=== PATIENT | male | born 1960 | race Caucasian/White ===

== ENCOUNTER 2018-06-22 12:36 | Emergency (ER) | payer OTHER ==
[~2018-06-22] VITALS: Ht 170.2 cm; Wt 87.4 kg
[2018-06-22 12:37] VITALS: Ht 170.2 cm; Wt 87.4 kg
--- NOTE | 2018-06-22 13:03 | EMERGENCY ROOM VISIT NOTE ---
History Report prepared by Vijayibmaeve: Oma Suh Under the Supervision of: Dr. Jaziel Klein M.D. First contact with patient: 12:47 Chief Complaint: WEAKNESS Stated Complaint: WEAK AND SHAKES History of Present Illness The patient is a 57 year old male who presents to the Emergency Room with complaints of worsening weakness. He reports he experienced pneumonia 18 years ago, and about 1 month ago, he started experiencing "the shakes real bad". He laid in bed for a day, and the next day felt better. Last night, he experienced the shakes, chills, and a cough again. Around 0200, he woke up feeling very nauseous and vomited several times. He states his vomit appeared "black" and he also experienced "black" diarrhea and a headache. He tried to go to work today, but was unable to make it through the day, so he went home and called his doctor who referred him to the ED. He states the shakes have subsided, but he does still have a headache that he rates as a 5/10 in severity. He is able to touch his chin to his chest and move his head from side to side. The patient denies any recent exposures to ticks or prolonged time spent outside. He has experienced no recent rashes. He denies any recent questionable food sources and states he "only ate watermelon" yesterday. He believes his last colonoscopy was within the past 10 years but cannot remember who scoped him. The patient denies any recent abdominal pain. He has never undergone abdominal surgery and still has his gallbladder and appendix. 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 A total of 10 systems reviewed and were otherwise negative. Past Medical & Surgical Medical Problems: (1) History of pneumonia Social History Smoking Status: Never Smoker Alcohol Use: occasionally Drug Use: none Marital Status: Housing Status: lives with family Occupation Status: employed Current/Historical Medications Scheduled Ondasetron Odt (Zofran Odt), 4 MG SL Q6H Pantoprazole Sodium (Protonix), 1 TAB PO DAILY Allergies Coded Allergies: No Known Allergies (Unverified , 06/22/18) Physical Exam Vital Signs Date Time Temp Pulse Resp B/P (MAP) Pulse Ox O2 Delivery O2 Flow Rate FiO2 06/22/18 16:01 101 16 114/69 95 06/22/18 15:00 22 118/77 97 06/22/18 14:55 101 18 06/22/18 14:30 134/83 06/22/18 14:25 92 21 96 06/22/18 14:01 118/72 06/22/18 13:55 92 17 99 06/22/18 13:48 36.9 77 12 115/80 96 Room Air 06/22/18 13:43 81 06/22/18 13:42 96 Room Air 06/22/18 12:37 37.0 104 20 118/75 97 Room Air Physical Exam GENERAL: Awake, alert, well-appearing, in no acute distress HENT: Normocephalic, atraumatic. Oropharynx unremarkable. EYES: Normal conjunctiva. Sclera non-icteric. NECK: Supple. No nuchal rigidity. FROM. No JVD. No evidence of meningitis or encephalitis on exam. RESPIRATORY: Clear to auscultation. CARDIAC: Regular rate, normal rhythm. Extremities warm and well perfused. Pulses equal. ABDOMEN: Soft, non-distended. No tenderness to palpation. No rebound or guarding. No masses. RECTAL: Brown stool, heme positive. MUSCULOSKELETAL: Chest examination reveals no tenderness. The back is symmetrical on inspection without obvious abnormality. There is no CVA tenderness to palpation. No joint edema. LOWER EXTREMITIES: Calves are equal size bilaterally and non-tender. No edema. No discoloration. NEURO: Normal sensorium. No sensory or motor deficits noted. SKIN: No rash or jaundice noted. Medical Decision & Procedures ER Provider Diagnostic Interpretation: Radiology results as stated below per my review and radiologist interpretation: CHEST ONE VIEW PORTABLE CLINICAL HISTORY: Cough. Weakness. COMPARISON STUDY: No previous studies for comparison. FINDINGS: Lung volumes are normal. No pneumothorax or pleural effusion is noted. No evidence for pulmonary edema. Cardiomediastinal silhouette is unremarkable. There is no consolidation. IMPRESSION: No acute cardiopulmonary findings. Electronically signed by: Julio Escobar M.D. 06/22/2018 1:41 PM Laboratory Results 06/22/18 13:14 Red Blood Count 5.22, Mean Corpuscular Volume 84.9, Mean Corpuscular Hemoglobin 29.1, Mean Corpuscular Hemoglobin Concent 34.3, Mean Platelet Volume 9.4, Neutrophils (%) (Auto) 72.1, Lymphocytes (%) (Auto) 19.9, Monocytes (%) (Auto) 6.8, Eosinophils (%) (Auto) 0.8, Basophils (%) (Auto) 0.2, Neutrophils # (Auto) 3.59, Lymphocytes # (Auto) 0.99, Monocytes # (Auto) 0.34, Eosinophils # (Auto) 0.04, Basophils # (Auto) 0.01 06/22/18 13:14 Test 06/22/18 13:14 06/22/18 13:24 White Blood Count 4.98 K/uL (4.8-10.8) Red Blood Count 5.22 M/uL (4.7-6.1) Hemoglobin 15.2 g/dL (14.0-18.0) Hematocrit 44.3 % (42-52) Mean Corpuscular Volume 84.9 fL (80-100) Mean Corpuscular Hemoglobin 29.1 pg (25-34) Mean Corpuscular Hemoglobin Concent 34.3 g/dl (32-36) Platelet Count 174 K/uL (130-400) Mean Platelet Volume 9.4 fL (7.4-10.4) Neutrophils (%) (Auto) 72.1 % Lymphocytes (%) (Auto) 19.9 % Monocytes (%) (Auto) 6.8 % Eosinophils (%) (Auto) 0.8 % Basophils (%) (Auto) 0.2 % Neutrophils # (Auto) 3.59 K/uL (1.4-6.5) Lymphocytes # (Auto) 0.99 K/uL (1.2-3.4) Monocytes # (Auto) 0.34 K/uL (0.11-0.59) Eosinophils # (Auto) 0.04 K/uL (0-0.5) Basophils # (Auto) 0.01 K/uL (0-0.2) RDW Standard Deviation 41.6 fL (36.4-46.3) RDW Coefficient of Variation 13.4 % (11.5-14.5) Immature Granulocyte % (Auto) 0.2 % Immature Granulocyte # (Auto) 0.01 K/uL (0.00-0.02) Prothrombin Time 11.0 SECONDS (9.0-12.0) Prothromb Time International Ratio 1.0 (0.9-1.1) Activated Partial Thromboplast Time 27.1 SECONDS (21.0-31.0) Partial Thromboplastin Ratio 1.0 Est Creatinine Clear Calc Drug Dose 86.7 ml/min Estimated GFR () 98.1 Estimated GFR (Non- 84.6 BUN/Creatinine Ratio 20.8 (10-20) Calcium Level 8.6 mg/dl (8.5-10.1) Total Bilirubin 1.3 mg/dl (0.2-1) Direct Bilirubin 0.3 mg/dl (0-0.2) Aspartate Amino Transf (AST/SGOT) 20 U/L (15-37) Alanine Aminotransferase (ALT/SGPT) 24 U/L (12-78) Alkaline Phosphatase 51 U/L (45-117) Total Protein 6.7 gm/dl (6.4-8.2) Albumin 3.6 gm/dl (3.4-5.0) Lipase 103 U/L (73-393) Bedside Hemoglobin 15.0 g/dl (14.0-18.0) Bedside Hematocrit 44 % (42-52) Bedside Sodium 140 mEq/L (135-144) Bedside Potassium 3.6 mEq/L (3.3-5.0) Bedside Chloride 100 mEq/L (101-112) Bedside Total CO2 26 mEq/l (24-31) Anion Gap 18.0 mmol/L (16-25) Bedside Blood Urea Nitrogen 19 mg/dl (7-18) Bedside Creatinine 1.0 mg/dl (0.6-1.3) Bedside Glucose (other) 102 mg/dl (70-99) Bedside Ionized Calcium (Rivka) 1.15 mmol/l (1.12-1.32) Labs reviewed by ED physician. Medications Administered Medications (Trade) Dose Ordered Sig/Jaswinder Route Start Time Stop Time Status Last Admin Dose Admin Sodium Chloride 1,000 ml @ 999 mls/hr Q1H1M STAT IV 06/22/18 13:10 06/22/18 14:10 DC 06/22/18 13:44 999 MLS/HR Ondansetron HCl (Zofran Inj) 4 mg NOW STAT IV 06/22/18 13:10 06/22/18 13:12 DC 06/22/18 13:45 4 MG Albuterol Sulfate (Ventolin 0.083% 2.5MG/3ML Neb) 2.5 mg NOW STAT INH 06/22/18 13:11 06/22/18 13:13 DC 06/22/18 13:45 2.5 MG Pantoprazole Sodium (Protonix Tab) 40 mg NOW STAT PO 06/22/18 13:58 06/22/18 13:59 DC 06/22/18 14:08 40 MG Acetaminophen (Tylenol Tab) 1,000 mg NOW STAT PO 06/22/18 14:27 06/22/18 14:28 DC 06/22/18 15:04 1,000 MG Diphenhydramine HCl (Benadryl Inj) 50 mg NOW STAT IV 06/22/18 14:27 06/22/18 14:28 DC 06/22/18 15:03 50 MG Prochlorperazine Edisylate 10 mg/ Syringe 10 ml @ 5 mls/min TODAY@1427 IV 06/22/18 14:27 06/22/18 14:44 DC 06/22/18 15:04 5 MLS/MIN ECG Per My Interpretation Indication: weakness Rate (beats per minute): 81 Rhythm: normal sinus Findings: other (no ST elevation, no ST depression) ED Course 1254: Past medical records reviewed. The patient was evaluated in room B7. A complete history and physical examination was performed. 1331: I discussed the patients case with SHAGUFTA Levin, [facility]. She reviewed the patients history and recommends discharge home and outpatient follow up if he continues to be stable here in the ED. Medical Decision Differential diagnosis: Etiologies such as metabolic, infection, hypo/hyperglycemia, electrolyte abnormalities, cardiac sources, intracerebral event, toxicologic, neurologic, as well as others were entertained. This is a 57-year-old male who presents emergency department complaining of vomiting black material this morning along with black diarrhea. He is heme positive on examination however the patient is not tachycardic and is normotensive. In addition his hemoglobin was found to be normal. His vomiting was controlled in the emergency department and the patient was able to tolerate p.o. Protonix. In reviewing the patient's risk factors he does not drink alcohol has very little caffeine. I strongly cautioned him not to take anymore ibuprofen. I did discuss his case with the on-call manager business intelligence and we both felt that the patient can be safely discharged home for follow-up with gastroenterology however I stressed the need to return to the emergency department if the patient became weak or began vomiting large amounts of blood. In the emergency department the patient was able to tolerate p.o. Protonix and I feel can be safely discharged home. He was also given normal saline bolus and Zofran. He will be continued on Protonix at home pending follow-up with gastroenterology. Patient was in agreement with the treatment plan. Medication Reconcilliation Current Medication List: was personally reviewed by me Blood Pressure Screening Patient's blood pressure: Normal blood pressure Blood pressure disposition: Did not require urgent referral Consults Time Called: 1329 Consulting Physician: SHAGUFTA Levin [facility] Returned Call: 1331 I discussed the patients case with SHAGUFTA Levin [facility]. She reviewed the patients history and recommends discharge home and outpatient follow up if he continues to be stable here in the ED. Impression Primary Impression: Gastritis Scribe Attestation The scribe's documentation has been prepared under my direction and personally reviewed by me in its entirety. I confirm that the note above accurately reflects all work, treatment, procedures, and medical decision making performed by me. Departure Information Dispostion Home / Self-Care Prescriptions Ondasetron Odt (ZOFRAN ODT) 4 Mg Tab 4 MG SL Q6H for Nausea, #6 TAB Prov: Jaziel Klein MD 06/22/18 Pantoprazole Sodium (PROTONIX) 40 Mg Tab 1 TAB PO DAILY for 30 Days, #30 TAB Prov: Jaziel Klein MD 06/22/18 Referrals Jaziel Brian M.D. (PCP) Patient Instructions ED Bleed UGI Stable, ED Gastritis, Gastritis Tx, My [facility] Additional Instructions Need follow up with Dr Luna's office Return for uncontrolled vomiting, severe diarrhea, Increasing weakness Start taking Probiotics (pills or yogurt) Avoid alcohol, caffeine, aspirin and NSAIDs such as Ibuprofen Take 1000 mg Tylenol as needed You have been examined and treated today on an emergency basis only. This is not a substitute for, or an effort to provide, complete comprehensive medical care. It is impossible to recognize and treat all injuries or illnesses in a single emergency department visit. It is therefore important that you follow up closely with your PCP. Call as soon as possible for an appointment. Thank you for your time and consideration. I look forward to speaking with you again soon. Please don't hesitate to call us if you have any questions. Problem Qualifiers Primary Impression: Gastritis Gastritis type: unspecified gastritis Chronicity: unspecified Gastritis bleeding: presence of bleeding unspecified Qualified Codes: K29.70 - Gastritis, unspecified, without bleeding
[2018-06-22] MEDS ORDERED: ONDANSETRON INJ 2 MG/ML 2 ML VIAL IV STA (13:10)
[2018-06-22] MEDS ORDERED: SODIUM CHLORIDE 0.9% 1000ML 1,000 ML IV STA (13:10)
[2018-06-22] MEDS ORDERED: ALBUTEROL 0.083% NEBU SOLN 3 ML VIAL INH STA (13:11)
[2018-06-22 13:26] LABS: BASO % 0.2 %; BASO ABS # 0.01 K/uL (0-0.2); EOS % 0.8 %; EOS ABS # 0.04 K/uL (0-0.5); HEMATOCRIT 44.3 % (42-52); HEMOGLOBIN 15.2 g/dL (14.0-18.0); IG# 0.01 K/uL (0.00-0.02); LYMPH % 19.9 %; LYMPH ABS # 0.99 K/uL (1.2-3.4); MEAN CELL VOLUME 84.9 fL (80-100); MEAN CORPUSCULAR HEMOGLOBIN 29.1 pg (25-34); MEAN CORPUSCULAR HGB CONC 34.3 g/dl (32-36); MEAN PLATELET VOLUME 9.4 fL (7.4-10.4); MONO % 6.8 %; MONO ABS # 0.34 K/uL (0.11-0.59); NEUT % 72.1 %; NEUT ABS # 3.59 K/uL (1.4-6.5); PLATELET COUNT 174 K/uL (130-400); RED CELL DISTRIBUTION WIDTH CV 13.4 % (11.5-14.5); RED CELL DISTRIBUTION WIDTH SD 41.6 fL (36.4-46.3); WHITE BLOOD COUNT 4.98 K/uL (4.8-10.8)
[2018-06-22 13:37] LABS: ISTAT IONIZED CALCIUM 1.15 mmol/l (1.12-1.32); ISTAT POTASSIUM 3.6 mEq/L (3.3-5.0)
[2018-06-22 13:40] LABS: PTT PATIENT 27.1 SECONDS (21.0-31.0)
[2018-06-22 13:42] VITALS: O2SAT 96
--- NOTE | 2018-06-22 13:42 | DIAGNOSTIC IMAGING REPORT ---
CHEST ONE VIEW PORTABLE CLINICAL HISTORY: Cough. Weakness. COMPARISON STUDY: No previous studies for comparison. FINDINGS: Lung volumes are normal. No pneumothorax or pleural effusion is noted. No evidence for pulmonary edema. Cardiomediastinal silhouette is unremarkable. There is no consolidation. IMPRESSION: No acute cardiopulmonary findings. Electronically signed by: Julio Escobar M.D. 06/22/2018 1:41 PM Dictated Date/Time: 06/22/2018 1:40 PM
[2018-06-22 13:48] VITALS: TEMP 36.9
[2018-06-22 13:48] LABS: ALBUMIN 3.6 gm/dl (3.4-5.0); CALCIUM 8.6 mg/dl (8.5-10.1); CREATININE 0.98 mg/dl (0.60-1.40); POTASSIUM 3.6 mmol/L (3.5-5.1); TOTAL PROTEIN 6.7 gm/dl (6.4-8.2)
[2018-06-22] MEDS ORDERED: PANTOprazole SOD 40 MG TAB PO STA (13:58)
[2018-06-22] MEDS ORDERED: DiphenhydrAMINE HCL 50 MG/ML VIAL IV STA (14:27)
[2018-06-22] MEDS ORDERED: PROCHLORPERAZINE INJ 10 MG in SYRINGE 8 ML IV SCH (14:27)
[2018-06-22] MEDS ORDERED: PROCHLORPERAZINE 5 MG/ML 2 ML VIAL IV STA (14:27)
[2018-06-22] MEDS ORDERED: ACETAMINOPHEN 500 MG TAB PO STA (14:27)
[2018-06-22] MEDS ORDERED: ONDA4TAB10 SL (14:35)
[2018-06-22] MEDS ORDERED: PANT40TA PO (14:35)
[2018-06-22 16:01] VITALS: BP 114/69; PULSE 101; O2SAT 95
== END 2018-06-22 16:01 | disposition home or self-care (01) ==
LOC: C.EDB 12:37
DX: K29.70 Gastritis, unspecified, without bleeding (principal)

== ENCOUNTER 2020-09-26 18:00 | Observation (INO) ==
--- OUTSIDE RECORDS SUMMARY | 2020-09-26 18:02 | External Medical Summary | Continuity of Care Document ---
:1960 Author Name Ofelia Milton, Provider Address Unavailable Unavailable , Care Team Providers Name Role Phone Unavailable Unavailable Unavailable Nilam De Leon PA-C Unavailable [email or web address] PCP, NO Unavailable Unavailable Unavailable Unavailable Unavailable Problems Melena (578.1) (K92.1) Hematemesis (578.0) (K92.0) Allergies and Adverse Reactions No Known Drug Allergies (Allergy) Medications predniSONE 20 MG Oral Tablet , M.D. Start: Refills: 0 Cephalexin 500 MG Oral Capsule , M.D. Start: Refills: 0 Pantoprazole Sodium 40 MG Oral Tablet Delayed Release; TAKE 1 TABLET DAILY. AIDAN De Leon Start: 10-Jul-2018 Quantity: 30 Refills: 0 Procedures Procedures not documented Immunizations Immunizations not documented Plan of Treatment Planned Observations Planned Goals not documented Results No Known Results Results not documented
--- OUTSIDE RECORDS SUMMARY | 2020-09-26 18:02 | External Medical Summary | Continuity of Care Document ---
:1960 Author Name Ofelia Milton, Provider Address Unavailable Unavailable , Care Team Providers Name Role Phone Unavailable Unavailable Unavailable Nilam De Leon PA-C Unavailable [email or web address] PCP, NO Unavailable Unavailable Unavailable Unavailable Unavailable Problems Melena (578.1) (K92.1) Hematemesis (578.0) (K92.0) Allergies and Adverse Reactions No Known Drug Allergies (Allergy) Medications Pantoprazole Sodium 40 MG Oral Tablet Delayed Release; TAKE 1 TABLET DAILY. AIDAN De Leon Start: 10-Jul-2018 Quantity: 30 Refills: 0 Cephalexin 500 MG Oral Capsule , M.D. Start: Refills: 0 predniSONE 20 MG Oral Tablet , M.D. Start: Refills: 0 Procedures Procedures not documented Immunizations Immunizations not documented Plan of Treatment Planned Observations Planned Goals not documented Results No Known Results Results not documented
[2020-09-26] MEDS ORDERED: ACETAMINOPHEN 500 MG TAB PO STA (19:15)
[2020-09-26] MEDS ORDERED: HYDROcodone/HOMATROPINE SYRUP 5MG/1.5MG 5ML UDP PO STA (19:15)
[2020-09-26] MEDS ORDERED: SODIUM CHLORIDE 0.9% 1000ML 1,000 ML IV SCH (19:16)
[2020-09-26 19:50] LABS: Hematocrit (blood only) 44.6 % (42-52); Hemoglobin 15.1 g/dL (14.0-18.0); Immature Granulocytes # (auto) 0.01 K/uL (0.00-0.02); Immature Granulocytes % (auto) 0.3 %; Mean Corpuscular Hemoglobin 28.8 pg (25-34); Mean Corpuscular Hgb Conc 33.9 g/dL (32-36); Mean Corpuscular Volume 85.1 fL (80-100); Mean Platelet Volume 10.8 fL (7.4-10.4); Monocytes # (auto) 0.15 K/uL (0.11-0.59); Monocytes % (auto) 3.8 %; Neutrophils # (auto) 2.85 K/uL (1.4-6.5); Neutrophils % (auto) 72.9 %; Platelet Count 163 K/uL (130-400); RDW Coefficient of Variation 13.2 % (11.5-14.5); Red Blood Count 5.24 M/uL (4.7-6.1); White Blood Count 3.91 K/uL (4.8-10.8)
[2020-09-26 20:10] LABS: Albumin Level 3.1 gm/dl (3.4-5.0); BUN Creatinine Ratio 16.1 (10-20); Calcium 8.2 mg/dl (8.5-10.1); Creatinine Clr Calc Pharmacy 78.1 ml/min; Est GFR (African American) 88.4; Est GFR (Non-African American) 76.2; Potassium 3.7 mmol/L (3.5-5.1)
[2020-09-26 20:11] LABS: SARS CoV2 RNA(COVID-19) ID NOW POSITIVE (NEGATIVE)
[2020-09-26 20:13] LABS: Albumin Globulin Ratio 0.7 (0.9-2); Bilirubin,Total 0.5 mg/dl (0.2-1); Globulin 4.2 gm/dl (2.5-4.0); Total Protein 7.3 gm/dl (6.4-8.2)
--- NOTE | 2020-09-26 20:19 | XRay Report ---
XR chest 1V portable CLINICAL HISTORY: cough, fever COMPARISON STUDY: Chest radiograph July 02, 2018. FINDINGS: Lung volumes are at the lower limits of normal. There are possible mild right lung airspace opacities. There is no pneumothorax or pleural effusion. Cardiac size is normal. Mediastinal contour s are normal. There is no evidence for pulmonary edema. IMPRESSION: Possible mild airspace opacities within the right lung. ACT 112: Negative or not required by law. Electronically signed by: Julio Escobar M.D. 09/26/2020 8:18 PM
[2020-09-26] MEDS ORDERED: DEXAMETHASONE SOD INJ 10 MG/ML VIAL IV ONE (20:40)
[2020-09-26 21:01] LABS: Influenza A virus by PCR Negative (Negative); Influenza B virus by PCR Negative (Negative)
[2020-09-26] MEDS ORDERED: OPTIRAY 320 125ml IV ONE (22:02)
[2020-09-26 23:17] LABS: D Dimer 740 ug/L FEU (0-500)
--- NOTE | 2020-09-26 23:21 | History & Physical Report ---
Date of Service September 26, 2020 Assessment & Plan (1) Pneumonia due to COVID-19 virus: Pneumonia due to COVID-19 virus with hypoxia- Admit to monitored bed Decadron 6 mg IV every 12 hours Convalescent plasma x1, consent obtained. Remdesivir IV per protocol Ceftriaxone 1 g IV daily Azithromycin 500 mg IV daily Ventolin HFA 2 puffs 4 times daily, and every 2 hours as needed Guaifenesin extended release 600 mg p.o. twice daily Hycodan syrup 5 mL p.o. every 4 hours as needed cough Acetaminophen 650 mg p.o. every 6 hours as needed mild pain or temperature Present on Admission?: Yes (2) Elevated d-dimer: D-dimer added onto existing laboratories was elevated at 740. CT angio PE protocol was not optimal, but was negative for any large central PE. Place patient on Lovenox 0.5 mg/ kilogram subcu daily. Order lower extremity venous Dopplers Present on Admission?: Yes (3) History of melena: Patient had negative EGD in 2018, without cause of melena determined. Monitor closely while on Lovenox. 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 He was seen at [facility] 1 week ago, had COVID-19 testing done at that time, but has not yet received the results. In the emergency department tonight, he underwent COVID-19 testing that was positive. He was found to have a pulse ox on room air to as low as 80=8% this evening, temperature of 102.9, elevated D- dimer of 740, and albumin of 3.1. He did undergo CT angiography PE protocol, which was limited due to motion, did not find any significant PE, but did find bilateral groundglass infiltrates and consolidation, with mild esophageal wall thickening and small hiatal hernia. There are also small mediastinal and hilar lymph nodes. Allergies Allergy/AdvReac Type Severity Reaction Status Date / Time No Known Allergies Allergy Verified 09/26/20 19:47 Home Medications Home Medications Medication Instructions Recorded Confirmed Type [id number] [Vicks 2 cap PO UD PRN 09/26/20 09/26/20 History NyQuil Cold/Flu Liquicap] Past Med/Surg History Medical History Gastritis Hearing deficit Hyperlipidemia NO MEDICINE Surgical History History of colonoscopy Hx of vasectomy Social History Smoking Status: Never smoker Tobacco Type: Smokeless Tobacco (Dip or Chew) Second Hand Exposure: No; Do You Dip or Chew Tobacco: Yes; Hx Alcohol Use: No Hx Substance Use: No Preferred Language: Macedonian Communication Ability: Effective Site Administrator Required: No Beliefs That Will Affect Care: None Current Living Situation: Significant Other Other Information That Helps Us Care for You: No Feels Safe at Home: Yes Safety Concerns: Feels Safe At This Time Assistive Devices: Oxygen - Continuous Review of Systems Review of Systems: The patient denies palpitations, lower extremity swelling, sore throat, chills, sweats, nausea, vomiting, diarrhea , constipation, abdominal pain, pelvic pain, blood in urine or stool, dysuria, urinary frequency or urgency, lightheadedness, dizziness, memory loss, loss of consciousness, rash, abnormal bruising or bleeding, imbalance, focal or generalized weakness, numbness or tingling in arms or legs, or night sweats. The review of systems is otherwise negative other than for that already noted above, and at least 10 systems have been reviewed. Physical Exam Physical Exam: The patient is awake, alert and oriented 3, normocephalic and atraumatic, lying in bed and in no acute distress. HEENT--PERRL, EOMI, mucous membranes and oropharynx dry. Neck--supple. No JVD. No bruits. Thyroid normal, trachea midline, no adenopathy. Heart--normal S1 and S2. No murmurs, rubs or gallops. Lungs--clear bilaterally, no respiratory distress, no accessory muscle use. Abdomen--normal bowel sounds and soft. Nontender. Nondistended. Extremities--no cyanosis or clubbing. No edema. Dermatologic--normal skin turgor, normal color, no abnormal lymph nodes, no rash. Neurologic--cranial nerves II through XII grossly intact. Rheumatologic--normal range of motion. Psychiatric--normal affect. Results & Data Results & Data ([facility]) Vital Signs (Past 12 Hours) Vital Signs Temp Pulse Resp BP Pulse Ox 09/26/20 23:00 93 09/26/20 22:30 89 29 H 118/80 97 09/26/20 22:11 92 H 19 96 09/26/20 21:30 93 H 28 H 118/71 94 09/26/20 21:00 91 H 26 H 107/70 90 09/26/20 20:31 102.9 F H 09/26/20 20:30 93 H 28 H 111/71 90 09/26/20 20:29 97 H 20 93 09/26/20 19:36 107 H 18 93 09/26/20 19:32 122 H 17 132/72 94 09/26/20 19:22 106 H 96 09/26/20 18:04 102.7 F H 117 H 20 136/70 96 Laboratory Results Laboratory Results WBC 3.91 K/uL (4.8-10.8) L 09/26/20 19: RBC 5.24 M/uL (4.7-6.1) 09/26/20 19: Hgb 15.1 g/dL (14.0-18.0) 09/26/20 19: Hct 44.6 % (42-52) 09/26/20 19: MCV 85.1 fL (80-100) 09/26/20 19: MCH 28.8 pg (25-34) 09/26/20 19: MCHC 33.9 g/dL (32-36) 09/26/20 19: RDW Std Deviation 41.0 fL (36.4-46.3) 09/26/20: RDW Coeff of Valentín 13.2 % (11.5-14.5) 09/26/20 19: Plt Count 163 K/uL (130-400) 09/26/20 19: MPV 10.8 fL (7.4-10.4) H 09/26/20 19: Immature Gran % (Auto) 0.3 % 09/26/20 19: Neut % (Auto) 72.9 % 09/26/20 19: Lymph % (Auto) 23.0 % 09/26/20 19: [place] % (Auto) 3.8 % 09/26/20 19: Eos % (Auto) 0.0 % 09/26/20 19: Baso % (Auto) 0.0 % 09/26/20 19: Neut # (Auto) 2.85 K/uL (1.4-6.5) 09/26/20 19: Lymph # (Auto) 0.90 K/uL (1.2-3.4) L 09/26/20 19: [place] # (Auto) 0.15 K/uL (0.11-0.59) 09/26/20 19: Eos # (Auto) 0.00 K/uL (0-0.5) 09/26/20 19: Baso # (Auto) 0.00 K/uL (0-0.2) 09/26/20 19: Immature Gran # (Auto) 0.01 K/uL (0.00-0.02) 09/26/20 19: D-Dimer 740 ug/L FEU (0-500) H* 09/26/20 22:43 Sodium 135 mmol/L (136-145) L 09/26/20 19: Potassium 3.7 mmol/L (3.5-5.1) 09/26/20 19: Chloride 103 mmol/L (98-107) 09/26/20 19: Carbon Dioxide 29 mmol/L (21-32) 09/26/20 19: Anion Gap 3.0 (3-11) 09/26/20 19: BUN 17 mg/dl (7-18) 09/26/20 19: Creatinine 1.05 mg/dl (0.6-1.4) 09/26/20 19: Est Cr Clr Drug Dosing 78.1 ml/min 09/26/20 19: Est GFR ( Amer) 88.4 09/26/20 19: Est GFR (Non-Af Amer) 76.2 09/26/20 19: BUN/Creatinine Ratio 16.1 (10-20) 09/26/20 19:26 Glucose 104 mg/dl (70-99) H 09/26/20 19:26 Lactate 0.7 mmol/L (0.4-2.0) 09/26/20 21:07 Calcium 8.2 mg/dl (8.5-10.1) L 09/26/20 19:26 Total Bilirubin 0.5 mg/dl (0.2-1) 09/26/20 19:26 AST 34 U/L (15-37) 09/26/20 19:26 ALT 30 U/L (12-78) 09/26/20 19:26 Alkaline Phosphatase 74 U/L (45-117) 09/26/20 19:26 Troponin I < 0.015 ng/ml (0-0.045) 09/26/20 21:07 Total Protein 7.3 gm/dl (6.4-8.2) 09/26/20 19:26 Albumin 3.1 gm/dl (3.4-5.0) L 09/26/20 19:26 Globulin 4.2 gm/dl (2.5-4.0) H 09/26/20 19:26 Albumin/Globulin Ratio 0.7 (0.9-2) L 09/26/20 19:26 Procalcitonin 0.65 ng/ml (0-0.5) H 09/26/20 21:07 COVID-19 Eval Order Covid19 IDNow [facility] 09/26/20 19:26 Influ A Molecular Assay Negative (Negative) 09/26/20 19:26 Influ B Molecular Assay Negative (Negative) 09/26/20 19:26 SARS-CoV-2, RNA, NAAT POSITIVE (NEGATIVE) A* 09/26/20 19:26 Blood Type A Positive 09/26/20 22:43 Antibody Screen NEGATIVE 09/26/20 22:43 Diagnostic Findings [facility] Patient: ROMI AHUMADA (Male) : 58 Status: ER Date: 09/26/20 22:10 Room #: History: COVID POSITIVE HYPOXIC SOB COUGH Slices: [id number] Priors: Tech: Klever Dangelo @ [phone] Exams: CTA CHEST Contrast: IV Amt: 116 Accession Numbers: [id number] Preliminary Findings Only See Final Report For Complete Findings CTA CHEST: Motion artifact and suboptimal bolus timing. No large central PE. Bilateral groundglass infiltrates/consolidation. No pneumothorax or pleural effusion. Mild esophageal wall thickening. Small hiatal hernia. Small mediastinal and hilar lymph nodes. Radiologist: Siri Hogan M.D. Study ready at 22:13 and initial results transmitted at 22:28 *This report constitutes a preliminary interpretation only. Non-acute findings felt to be unrelated to the clinical presentation may not be discussed in this report. The study will be interpreted and a final report will be generated by the local Radiologist the following shift. To reach the hospital radiology department call [phone]. If a discrepancy is found between the preliminary and final interpretations of this study, please notify us via our Client Portal at [email or web address] QA Exams.You can also fax this report with a description of the discrepancy, or include the final report, to our daytime fax number [phone].If faxing, please indicate the severity of discrepancy using one of the following categories: [ ] 1 - Agree/Informational [ ] 2 - Unlikely to Affect Management [ ] 3 - Possible Eventual Change of Management [ ] 4 - Probable Immediate Change of Management For all other patient related information, please fax us at [phone]. [id number] Code Status & VTE Plan Code Status Full code VTE Prophylaxis Plan VTE Prophylaxis will be ordered: Yes PG Care Time/CCT Total # of Minutes Spent Total Time Spent with Patient: Total time spent is greater than 50% in coordination of care (as documented) at patient's floor/unit and/or counseling patient: Coding Level of Care Code 76547 Initial Inpt Care Lvl 3 Diagnoses Pneumonia due to COVID-19 virus U07.1; J12.89 Elevated d-dimer R79.89 History of melena Z87.19
[2020-09-26] MEDS ORDERED: ACETAMINOPHEN 325 MG TAB PO PRN (23:27)
[2020-09-26] MEDS ORDERED: ONDANSETRON INJ 2 MG/ML 2 ML VIAL IV PRN (23:27)
[2020-09-26] MEDS: ALBUTEROL HFA 8 GM INHALER INH SCH (23:46)
[2020-09-26] MEDS: HYDROcodone/HOMATROPINE SYRUP 5MG/1.5MG 5ML UDP PO PRN (23:48)
[2020-09-27] MEDS ORDERED: REMDESIVIR 200 MG in SODIUM CHLORIDE 0.9% 210 ML IV SCH
[2020-09-27] MEDS ORDERED: cefTRIAXone SODIUM 2,000 MG in DEXTROSE 5% 50 ML IV SCH
[2020-09-27] MEDS ORDERED: SODIUM CHLORIDE 0.9% 10ML FLUSH IV SCH
[2020-09-27] MEDS: NSS + 20MEQ KCL 20 MEQ/1,000 ML BAG IV SCH ×2 (00:40→13:12)
--- NOTE | 2020-09-27 01:13 | Emergency Department Note ---
History of Present Illness General Chief complaint: Cough Stated complaint: COUGH, WEAKNESS, CHEST PAIN, HEADACHE Time Seen by Provider: 09/26/20 18:43 Source: patient Mode of arrival: ambulatory Limitations: no limitations History of Present Illness Maximum Pain Intensity: 5 This patient is a 60-year-old male who presents to the emergency department for evaluation of cough and flulike symptoms. Patient states that his symptoms started 8 days ago. He had a COVID-19 test performed at [facility] in [place] 1 week ago but has not yet received the results. Patient reports a persistent cough which makes it difficult for him to catch his breath. He has had fever/chills, body aches and headaches. Patient reports a decreased appetite and states he has not been eating much over the past several days. Denies vomiting, diarrhea or sore throat. He is not taking any medications at home. 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 He is unaware of any COVID-19 exposures. Home Medications Home Medications Medication Instructions Recorded Confirmed Type Vicks NyQuil Cold/Flu Liquicap 2 cap PO UD PRN 09/26/20 09/26/20 History azithromycin 250 mg PO DAILY #4 tab 09/27/20 Rx benzonatate [Tessalon Perles] 100 mg PO TID PRN #30 cap 09/27/20 Rx codeine-guaifenesin [Guaifenesin 5 ml PO Q4H PRN #118 ml 09/27/20 Rx AC] dexamethasone 6 mg PO DAILY #9 tab 09/27/20 Rx Allergies Allergy/AdvReac Type Severity Reaction Status Date / Time No Known Allergies Allergy Verified 09/26/20 19:47 Past Med/Surg History Medical History Gastritis Hearing deficit Hyperlipidemia NO MEDICINE Melena Surgical History History of colonoscopy Hx of vasectomy Social History Smoking Status: Never smoker Tobacco Type: Smokeless Tobacco (Dip or Chew) Second Hand Exposure: No; Hx Alcohol Use: No Hx Substance Use: No Preferred Language: Setswana Communication Ability: Effective Rn Perioperative Required: No Beliefs That Will Affect Care: None Current Living Situation: Significant Other Feels Safe at Home: Yes Assistive Devices: Oxygen - Continuous Review of Systems A total of 10 systems reviewed and were otherwise negative Physical Exam Vital Signs Vital Signs - 24 hr 09/26/20 18:04 09/26/20 19:22 09/26/20 19:32 Temperature 39.3 C H Temperature Source Oral Pulse Rate 117 H 106 H 122 H Pulse Rate from SpO2 Sensor 110 H Pulse Rhythm Regular Respiratory Rate 20 17 Respiratory Effort / Characteristics Non-Labored Spontaneous Respiratory Depth Normal Blood Pressure 136/70 132/72 Blood Pressure Mean 92 90 Pulse Oximetry 96 96 94 Oxygen Delivery Method Room Air Room Air Oxygen Flow Rate Sepsis Recent Fever Within 48 Hours No Sepsis New/Unexplained Change in Mental Status No Sepsis Action Taken by Nursing No Action Required 09/26/20 19:36 09/26/20 20:29 09/26/20 20:30 Temperature Temperature Source Pulse Rate 107 H 97 H 93 H Pulse Rate from SpO2 Sensor 108 H 97 H 94 H Pulse Rhythm Respiratory Rate 18 20 28 H Respiratory Effort / Characteristics Respiratory Depth Blood Pressure 111/71 Blood Pressure Mean 84 Pulse Oximetry 93 93 90 Oxygen Delivery Method Oxygen Flow Rate Sepsis Recent Fever Within 48 Hours Sepsis New/Unexplained Change in Mental Status Sepsis Action Taken by Nursing 09/26/20 20:31 09/26/20 21:00 09/26/20 21:30 Temperature 39.4 C H Temperature Source Oral Pulse Rate 91 H 93 H Pulse Rate from SpO2 Sensor 89 93 H Pulse Rhythm Respiratory Rate 26 H 28 H Respiratory Effort / Characteristics Respiratory Depth Blood Pressure 107/70 118/71 Blood Pressure Mean 79 84 Pulse Oximetry 90 94 Oxygen Delivery Method Nasal Cannula Oxygen Flow Rate 2 Sepsis Recent Fever Within 48 Hours Sepsis New/Unexplained Change in Mental Status Sepsis Action Taken by Nursing 09/26/20 22:11 Temperature Temperature Source Pulse Rate 92 H Pulse Rate from SpO2 Sensor 92 H Pulse Rhythm Respiratory Rate 19 Respiratory Effort / Characteristics Respiratory Depth Blood Pressure Blood Pressure Mean Pulse Oximetry 96 Oxygen Delivery Method Oxygen Flow Rate Sepsis Recent Fever Within 48 Hours Sepsis New/Unexplained Change in Mental Status Sepsis Action Taken by Nursing VITALS: Vitals are noted on the nurse's note and reviewed by myself. GENERAL: This is a 60-year-old male, frequently coughing, ill-appearing. SKIN: The skin was without rashes. EARS: External auditory canals clear, tympanic membranes pearly radford without erythema or effusion bilaterally. EYES: Pupils equal round and reactive to light and accommodation. NOSE: Patent, turbinates without inflammation or discharge. MOUTH: Mucous membranes moist. Pharynx mildly erythematous. NECK: Supple without nuchal rigidity. No lymphadenopathy. HEART: Regular rate and rhythm without murmurs gallops or rubs. LUNGS: Crackles noted in the left mid and lower lung [place]. No retractions or accessory muscle use. ABDOMEN: Positive bowel sounds x 4. Soft, nontender to palpation. NEURO: Patient was alert and oriented to person place and time. Course Administered Medications Discontinued Medications Acetaminophen (Acetaminophen 500 Mg Tab) 1,000 mg PO NOW STA Stop: 09/26/20 19:16 Last Admin: 09/26/20 19:39 Dose: 1,000 mg Documented by: [id number] Acetaminophen (Acetaminophen 325 Mg Tab) 650 mg PO Q4H PRN PRN Reason: Pain or Fever Stop: 10/26/20 23:26 Last Admin: 09/26/20 23:48 Dose: 650 mg Documented by: [id number] Albuterol (Albuterol Hfa 8 Gm Inhaler) 2 puffs INH QID MICHAEL Stop: 10/26/20 23:26 Last Admin: 09/27/20 11:41 Dose: 2 puffs Documented by: [id number] Admin: 09/27/20 08:11 Dose: 2 puffs Documented by: [id number] Admin: 09/26/20 23:46 Dose: 2 puffs Documented by: [id number] Dexamethasone (Dexamethasone Sod Inj 10 Mg/Ml Vial) 10 mg IV NOW ONE Stop: 09/26/20 20:41 Last Admin: 09/26/20 21:33 Dose: 10 mg Documented by: [id number] Enoxaparin Sodium (Enoxaparin Inj 60 Mg/0.6 Ml Syr) 50 mg SQ Q24H MICHAEL Stop: 10/27/20 06:59 Last Admin: 09/27/20 08:16 Dose: 50 mg Documented by: [id number] Guaifenesin (Guaifenesin 600 Mg Tabcr) 600 mg PO Q12 MICHAEL Stop: 10/27/20 08:59 Last Admin: 09/27/20 08:15 Dose: 600 mg Documented by: [id number] Hydrocodone Bit/Homatropine Methylb (Hydrocodone/Homatropine Syrup 5mg/1.5mg 5ml Udp) 5 ml PO NOW STA Stop: 09/26/20 19:16 Last Admin: 09/26/20 19:39 Dose: 5 ml Documented by: [id number] Hydrocodone Bit/Homatropine Methylb (Hydrocodone/Homatropine Syrup 5mg/1.5mg 5ml Udp) 5 ml PO Q4H PRN PRN Reason: Cough Stop: 10/10/20 23:26 Last Admin: 09/27/20 08:39 Dose: 5 ml Documented by: [id number] Admin: 09/26/20 23:48 Dose: 5 ml Documented by: [id number] Sodium Chloride (Nss 1000ml) 1,000 mls @ 999 mls/hr IV .Q1H1M MICHAEL Stop: 09/26/20 20:16 Last Infusion: 09/26/20 20:54 Dose: 0 mls/hr Documented by: [id number] Admin: 09/26/20 19:39 Dose: 999 mls/hr Documented by: [id number] Potassium Chloride/Sodium Chloride (Normal Saline W/20 Meq Kcl) 20 meq in 1,000 mls @ 100 mls/hr IV .Q10H MICHAEL Stop: 10/26/20 23:26 Last Admin: 09/27/20 13:12 Dose: Not Given Documented by: [id number] Infusion: 09/27/20 13:11 Dose: 0 mls/hr Documented by: [id number] Infusion: 09/27/20 07:00 Dose: 50 mls/hr Documented by: [id number] Admin: 09/27/20 00:40 Dose: 100 mls/hr Documented by: [id number] Dexamethasone 6 mg/ Syringe 1.5 mls @ 1 mls/min IV Q12H MICHAEL Stop: 10/27/20 06:59 Last Admin: 09/27/20 08:16 Dose: 1 mls/min Documented by: [id number] Remdesivir 200 mg/ Sodium (Chloride) 250 mls @ 125 mls/hr IV TODAY@0000 [facility]; Protocol Stop: 09/27/20 01:59 Last Infusion: 09/27/20 03:02 Dose: 0 mls/hr Documented by: [id number] Admin: 09/27/20 00:40 Dose: 125 mls/hr Documented by: [id number] Ceftriaxone Sodium 2,000 mg/ (Dextrose) 70 mls @ 100 mls/hr IV Q24H MICHAEL; Protocol Stop: 10/04/20 00:00 Last Infusion: 09/27/20 07:00 Dose: 0 mls/hr Documented by: [id number] Infusion: 09/27/20 01:37 Dose: 0 mls/hr Documented by: [id number] Admin: 09/27/20 00:41 Dose: 100 mls/hr Documented by: [id number] Azithromycin 500 mg/ Dextrose 255 mls @ 125 mls/hr IV DAILY MICHAEL Stop: 10/04/20 08:59 Last Infusion: 09/27/20 10:41 Dose: 0 mls/hr Documented by: [id number] Admin: 09/27/20 08:16 Dose: 125 mls/hr Documented by: [id number] Ioversol (Optiray 320 125ml) 116 ml IV ONCE ONE Stop: 09/26/20 22:03 Last Admin: 09/26/20 22:03 Dose: 116 ml Documented by: [id number] Sodium Chloride (Sodium Chloride 0.9% 10ml Flush) 30 ml IV Q24H MICHAEL Stop: 10/01/20 00:01 Last Admin: 09/27/20 03:01 Dose: 30 ml Documented by: [id number] Medical Decision Making Differential Diagnosis COVID-19, reactive airway disease, pneumonia, pneumothorax, COPD, CHF, infections, cardiac ischemia, pulmonary embolism, musculoskeletal, gastrointestinal, as well as other pathologies. Home Medications Current Medication List: was personally reviewed by me Laboratory Data Attestation: I reviewed the patient's lab results. Result diagrams: 09/27/20 06:18 09/27/20 06:18 Lab Results 09/26/20 09/26/20 09/26/20 Range/Units 19:26 19:26 19:26 WBC 3.91 L (4.8-10.8) K/uL RBC 5.24 (4.7-6.1) M/uL Hgb 15.1 (14.0-18.0) g/dL Hct 44.6 (42-52) % MCV 85.1 (80-100) fL MCH 28.8 (25-34) pg MCHC 33.9 (32-36) g/dL RDW Std Deviation 41.0 (36.4-46.3) fL RDW Coeff of Valentín 13.2 (11.5-14.5) % Plt Count 163 (130-400) K/uL MPV 10.8 H (7.4-10.4) fL Immature Gran % (Auto) 0.3 % Neut % (Auto) 72.9 % Lymph % (Auto) 23.0 % [place] % (Auto) 3.8 % Eos % (Auto) 0.0 % Baso % (Auto) 0.0 % Neut # (Auto) 2.85 (1.4-6.5) K/uL Lymph # (Auto) 0.90 L (1.2-3.4) K/uL [place] # (Auto) 0.15 (0.11-0.59) K/uL Eos # (Auto) 0.00 (0-0.5) K/uL Baso # (Auto) 0.00 (0-0.2) K/uL Immature Gran # (Auto) 0.01 (0.00-0.02) K/uL Sodium 135 L (136-145) mmol/L Potassium 3.7 (3.5-5.1) mmol/L Chloride 103 (98-107) mmol/L Carbon Dioxide 29 (21-32) mmol/L Anion Gap 3.0 (3-11) BUN 17 (7-18) mg/dl Creatinine 1.05 (0.6-1.4) mg/dl Est Cr Clr Drug Dosing 78.1 ml/min Est GFR ( Amer) 88.4 Est GFR (Non-Af Amer) 76.2 BUN/Creatinine Ratio 16.1 (10-20) Glucose 104 H (70-99) mg/dl Lactate (0.4-2.0) mmol/L Calcium 8.2 L (8.5-10.1) mg/dl Total Bilirubin 0.5 (0.2-1) mg/dl AST 34 (15-37) U/L ALT 30 (12-78) U/L Alkaline Phosphatase 74 (45-117) U/L Troponin I (0-0.045) ng/ml Total Protein 7.3 (6.4-8.2) gm/dl Albumin 3.1 L (3.4-5.0) gm/dl Globulin 4.2 H (2.5-4.0) gm/dl Albumin/Globulin Ratio 0.7 L (0.9-2) Procalcitonin (0-0.5) ng/ml COVID-19 Eval Order Influ A Molecular Assay Negative (Negative) Influ B Molecular Assay Negative (Negative) SARS-CoV-2, RNA, NAAT POSITIVE A* (NEGATIVE) 09/26/20 09/26/20 09/26/20 Range/Units 19:26 21:07 21:07 WBC (4.8-10.8) K/uL RBC (4.7-6.1) M/uL Hgb (14.0-18.0) g/dL Hct (42-52) % MCV (80-100) fL MCH (25-34) pg MCHC (32-36) g/dL RDW Std Deviation (36.4-46.3) fL RDW Coeff of Valentín (11.5-14.5) % Plt Count (130-400) K/uL MPV (7.4-10.4) fL Immature Gran % (Auto) % Neut % (Auto) % Lymph % (Auto) % [place] % (Auto) % Eos % (Auto) % Baso % (Auto) % Neut # (Auto) (1.4-6.5) K/uL Lymph # (Auto) (1.2-3.4) K/uL [place] # (Auto) (0.11-0.59) K/uL Eos # (Auto) (0-0.5) K/uL Baso # (Auto) (0-0.2) K/uL Immature Gran # (Auto) (0.00-0.02) K/uL Sodium (136-145) mmol/L Potassium (3.5-5.1) mmol/L Chloride (98-107) mmol/L Carbon Dioxide (21-32) mmol/L Anion Gap (3-11) BUN (7-18) mg/dl Creatinine (0.6-1.4) mg/dl Est Cr Clr Drug Dosing ml/min Est GFR ( Amer) Est GFR (Non-Af Amer) BUN/Creatinine Ratio (10-20) Glucose (70-99) mg/dl Lactate 0.7 (0.4-2.0) mmol/L Calcium (8.5-10.1) mg/dl Total Bilirubin (0.2-1) mg/dl AST (15-37) U/L ALT (12-78) U/L Alkaline Phosphatase (45-117) U/L Troponin I (0-0.045) ng/ml Total Protein (6.4-8.2) gm/dl Albumin (3.4-5.0) gm/dl Globulin (2.5-4.0) gm/dl Albumin/Globulin Ratio (0.9-2) Procalcitonin 0.65 H (0-0.5) ng/ml COVID-19 Eval [facility] A Molecular Assay (Negative) Influ B Molecular Assay (Negative) SARS-CoV-2, RNA, NAAT (NEGATIVE) 09/26/20 Range/Units 21:07 WBC (4.8-10.8) K/uL RBC (4.7-6.1) M/uL Hgb (14.0-18.0) g/dL Hct (42-52) % MCV (80-100) fL MCH (25-34) pg MCHC (32-36) g/dL RDW Std Deviation (36.4-46.3) fL RDW Coeff of Valentín (11.5-14.5) % Plt Count (130-400) K/uL MPV (7.4-10.4) fL Immature Gran % (Auto) % Neut % (Auto) % Lymph % (Auto) % [place] % (Auto) % Eos % (Auto) % Baso % (Auto) % Neut # (Auto) (1.4-6.5) K/uL Lymph # (Auto) (1.2-3.4) K/uL [place] # (Auto) (0.11-0.59) K/uL Eos # (Auto) (0-0.5) K/uL Baso # (Auto) (0-0.2) K/uL Immature Gran # (Auto) (0.00-0.02) K/uL Sodium (136-145) mmol/L Potassium (3.5-5.1) mmol/L Chloride (98-107) mmol/L Carbon Dioxide (21-32) mmol/L Anion Gap (3-11) BUN (7-18) mg/dl Creatinine (0.6-1.4) mg/dl Est Cr Clr Drug Dosing ml/min Est GFR ( Amer) Est GFR (Non-Af Amer) BUN/Creatinine Ratio (10-20) Glucose (70-99) mg/dl Lactate (0.4-2.0) mmol/L Calcium (8.5-10.1) mg/dl Total Bilirubin (0.2-1) mg/dl AST (15-37) U/L ALT (12-78) U/L Alkaline Phosphatase (45-117) U/L Troponin I < 0.015 (0-0.045) ng/ml Total Protein (6.4-8.2) gm/dl Albumin (3.4-5.0) gm/dl Globulin (2.5-4.0) gm/dl Albumin/Globulin Ratio (0.9-2) Procalcitonin (0-0.5) ng/ml COVID-19 Eval Order Influ A Molecular Assay (Negative) Influ B Molecular Assay (Negative) SARS-CoV-2, RNA, NAAT (NEGATIVE) Imaging Data Attestation: I personally reviewed and interpreted this imaging study as follows: Radiologist's Impression: XR chest 1V portable FINDINGS: Lung volumes are at the lower limits of normal. There are possible mild right lung airspace opacities. There is no pneumothorax or pleural effusion. Cardiac size is normal. Mediastinal contours are normal. There is no evidence for pulmonary edema. IMPRESSION: Possible mild airspace opacities within the right lung. CTA CHEST: Motion artifact and suboptimal bolus timing. No large central PE. Bilateral groundglass infiltrates/consolidation. No pneumothorax or pleural effusion. Mild esophageal wall thickening. Small hiatal hernia. Small mediastinal and hilar lymph nodes. Radiologist: Siri Hogan M.D. MDM Narrative The patient is a 60-year-old male who presents today complaining of cough and shortness of breath. Patient arrives febrile with persistent cough. He has bee n sick for about 1 week and did have a Covid test performed last week but is unaware of the results of this. Labs today reveal leukopenia, otherwise fairly unremarkable. A chest x-ray is consistent with COVID-19. Patient was found to be hypoxic, down to 90% on room air and requiring 2 L of oxygen via nasal cannula. A CTA of the chest was performed which shows no PE although some motion artifact, bilateral groundglass opacities noted. Patient treated with IV Decadron, Tylenol and saline bolus in the ED. Case was discussed with the [facility] hospitalist service, who agreed to evaluate the patient for further care. Impression & Plan Pneumonia due to COVID-19 virus, Hypoxia Discharge Plan Visit Data Chief Complaint: Cough Stated Complaint: COUGH, WEAKNESS, CHEST PAIN, HEADACHE ED Provider: Srinivas Echevarria ED Midlevel Provider: Shirley Lai Discharge Problem: Pneumonia due to COVID-19 virus, Hypoxia Patient Disposition: Admitted As Inpatient Discharge Instructions Interventions: ED Discharge Assessment Last Done: 09/26/20 23:00
[2020-09-27] MEDS ORDERED: ENOXAPARIN 0.5 MG/KG SQ SCH (02:45)
[2020-09-27 06:59] LABS: Hematocrit (blood only) 42.4 % (42-52); Hemoglobin 14.5 g/dL (14.0-18.0); Immature Granulocytes # (auto) 0.01 K/uL (0.00-0.02); Immature Granulocytes % (auto) 0.2 %; Lymphocytes # (auto) 0.76 K/uL (1.2-3.4); Lymphocytes % (auto) 18.4 %; Mean Corpuscular Hemoglobin 28.9 pg (25-34); Mean Corpuscular Hgb Conc 34.2 g/dL (32-36); Mean Corpuscular Volume 84.5 fL (80-100); Monocytes # (auto) 0.25 K/uL (0.11-0.59); Neutrophils # (auto) 3.12 K/uL (1.4-6.5); Neutrophils % (auto) 75.4 %; Platelet Count 157 K/uL (130-400); RDW Coefficient of Variation 13.4 % (11.5-14.5); RDW Standard Deviation 41.3 fL (36.4-46.3); Red Blood Count 5.02 M/uL (4.7-6.1); White Blood Count 4.14 K/uL (4.8-10.8)
[2020-09-27] MEDS ORDERED: dexAMETHasone 6 MG in SYRINGE 0 ML IV SCH (07:00)
[2020-09-27] MEDS ORDERED: ENOXAPARIN INJ 60 MG/0.6 ML SYR SQ SCH (07:00)
[2020-09-27 07:32] LABS: Albumin Globulin Ratio 0.7 (0.9-2); Albumin Level 2.8 gm/dl (3.4-5.0); BUN Creatinine Ratio 13.8 (10-20); Bilirubin,Total 0.3 mg/dl (0.2-1); Calcium 8.2 mg/dl (8.5-10.1); Creatinine Clr Calc Pharmacy 100.9 ml/min; Est GFR (African American) 111.2; Est GFR (Non-African American) 95.9; Globulin 4.1 gm/dl (2.5-4.0); Magnesium 2.2 mg/dl (1.8-2.4); Total Protein 6.9 gm/dl (6.4-8.2)
--- NOTE | 2020-09-27 08:07 | Ultrasound Report ---
BILATERAL LOWER EXTREMITY VENOUS DOPPLER HISTORY: Hypercoagulable state. Elevated D-dimer COMPARISON STUDY: None. FINDINGS: There is normal compressibility, flow, and augmentation within the bilateral lower extremit y deep venous systems. IMPRESSION: No DVT within the right or left lower extremity. ACT 112: Negative or not required by law. Electronically signed by: Vin Jarquin M.D. 09/27/2020 8:06 AM
[2020-09-27] MEDS: ALBUTEROL HFA 8 GM INHALER INH SCH ×2 (08:11→11:41)
--- NOTE | 2020-09-27 08:30 | CT Scan Report ---
CT angio chest PE protocol CT DOSE: 510.84 mGycm HISTORY: 60 years-old Male with covid positive, hypoxic. Acute hypoxia TECHNIQUE: Multiple CTA images of the chest were obtained after the intravenous administration of 116 ml Optiray 320. Coronal and sagittal MIPS were obtained from the axial data set and were submitted for review. All measurements were obtained according to NASCET criteria. A dose lowering technique w as utilized adhering to the principles of ALARA. COMPARISON: Chest radiograph of same day, DVT study 09/27/2020 FINDINGS: CTA: Heart is normal in size. No pericardial effusion. There is no thoracic aortic aneurysm or dissection. There is patency of the imaged great vessels. There is suboptimal evaluation of the pulmonary artery secondary to contrast bolus timing. No central pulmonary embolus identified. The majority of the jatinder us is present within the SVC. Respiratory motion artifact also limits the study. CT CHEST: Mildly heterogeneous left lobe of the thyroid. Mildly enlarged subcarinal lymph node measures 1.4 cm. Prominent bilateral hilar lymph nodes. No pneumothorax or pleural effusion. Peripherally predominant multifocal groundglass opacities are noted within all lobes bilaterally. Central airways are patent. No overt pulmonary edema. No suspicious pulmonary nodule or mass. 4 mm fissural nodule of the right midlung suggests probable lymph node. Small hiatal hernia with mild distal esophageal wall thickening and a few tiny distal periesophageal lymph nodes which are likely reactive. Soft tissues are unremarkable. Bones appear intact. No suspici ous bone lesions or acute fracture. IMPRESSION: 1. Limited evaluation of the pulmonary arterial tree secondary to respiratory motion and contrast jatinder us timing. No central pulmonary embolus identified. 2. Peripheral predominant multifocal groundglass opacities are noted within all lobes bilaterally sug gestive of acute viral pneumonia. Follow-up recommended. 3. Mild mediastinal adenopathy is likely reactive. 4. Small hiatal hernia with mild distal esophageal wall thickening. ACT 112: Negative or not required by law. The above report was generated using voice recognition software. It may contain grammatical, syntax o r spelling errors. Electronically signed by: Srinivas De La Rosa M.D. 09/27/2020 8:28 AM
[2020-09-27] MEDS: HYDROcodone/HOMATROPINE SYRUP 5MG/1.5MG 5ML UDP PO PRN (08:39)
[2020-09-27] MEDS ORDERED: guaiFENesin 600 MG TABCR PO SCH (09:00)
[2020-09-27] MEDS ORDERED: AZITHROMYCIN 500 MG in DEXTROSE 5% 250 ML IV SCH (09:00)
[2020-09-27] MEDS ORDERED: ALBUTEROL HFA 8 GM INHALER INH PRN (13:28)
--- NOTE | 2020-09-27 16:18 | Discharge Summary ---
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 He was seen at [facility] 1 week ago, had COVID-19 testing done at that time, but has not yet received the results. In the emergency department tonight, he underwent COVID-19 testing that was positive. He was found to have a pulse ox on room air to as low as 80=8% this evening, temperature of 102.9, elevated D- dimer of 740, and albumin of 3.1. He did undergo CT angiography PE protocol, which was limited due to motion, did not find any significant PE, but did find bilateral groundglass infiltrates and consolidation, with mild esophageal wall thickening and small hiatal hernia. There are also small mediastinal and hilar lymph nodes. Principal Diagnosis Covid-19 pneumonia Discharge Exam Constitutional WD/WN, vitals as above Eyes EOM intact bilaterally; no conjunctival abnormality ENMT external ear and nose normal, oropharynx normal Neck trachea midline, no thyromegaly normal visual inspection Respiratory normal respiratory effort, lungs clear to auscultation no respiratory distress Cardiovascular RRR, no murmur, no edema Gastrointestinal (Abdomen) Inspection/Auscultation: abdomen normal to inspection; abdomen not distended Musculoskeletal no cyanosis or clubbing, extremities motor strength 5/5 Skin no rashes, warm and dry Neurologic moves all extremities and awake Psychiatric Orientation: alert, oriented to person and cooperative Discharge Data Allergies Allergy/AdvReac Type Severity Reaction Status Date / Time No Known Allergies Allergy Verified 09/26/20 19:47 Consultations 09/26/20 21:06 ED Decision to Admit Stat Ordered Studies 09/26/20 20:49 CT angio chest PE protocol Urgent 09/27/20 02:58 US venous doppler LE Routine Hospital Course (1) Pneumonia due to COVID-19 virus: Pneumonia due to COVID-19 virus with transient hypoxia. Lowest O2 sat was 90%. - Patient felt well on 09/27 and requested discharge. - He is a moderate/severe case with no supplemental O2 required, but some mild hypoxemia with SpO2 < 94%. - With discussion, he felt dexamethasone would be acceptable. I did discuss the Recovery trial and how he does meet "severe" Covid, though given his illness, likely steroids will not be incredibly beneficial. - Declined further inpatient stay for remdesivir or convalescent plasma which I felt was totally fine given their benefits are limited in moderate Covid and only modest in severe Covid. - Discharged with supportive care as well as short course of antibiotic given his elevated procalcitonin. (2) Elevated d-dimer: D-dimer added onto existing laboratories was elevated at 740. CT angio PE protocol was not optimal, but was negative for any large central PE. (3) History of melena: Patient had negative EGD in 2018, without cause of melena determined. Monitor closely while on Lovenox. Total Time Total Time Spent Total Time Spent (In Minutes): 35 Discharge Plan Discharge Items Patient Disposition: Home - Self-Care Reason For Visit: COVID-19 PNEUMONIA W/HYPOXIA Discharge Diagnosis: Covid-19 pneumonia Activity: Resume your previous activity Non-emergency contact: Primary Care Provider Call non-emergency contact if: your symptoms worsen and your temperature is above 101 Follow-up/Referrals: Meng Waters [Primary Care Provider] - Diet: Regular Addtl Attending Provider Instructions: You were admitted with Covid-19 pneumonia. There is a slight chance you have a mild bacterial pneumonia on top of this, but I think the Covid-19 is driving most of your sickness. Fortunately, you are feeling better, and we are going to discharge you home. We will give you 4 more days of antibiotics, and 9 more days of steroids which the clinical trials have shown to be one of the most effective treatments for Covid-19. Feel free to try either the Robitussin or the Tessalon Perles or both for your cough. Please isolate yourself until 10 days past your first symptoms AND 24 hours after any fever. 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 As long as you remain fever-free, you can return to work by 10/03/2020 without restrictions. Please come back to the hospital if you have any shortness of breath, chest pressure, dizziness, lightheadedness, or other concerning symptoms. Pending Studies at Discharge: No Stand-Alone Forms: [facility], Work/School Release (Inpt), Smoking Cessation Medications and DC Order Prescriptions: New dexamethasone 6 mg tablet 6 mg PO DAILY Qty: 9 RF: 0 azithromycin 250 mg tablet 250 mg PO DAILY Qty: 4 RF: 0 codeine-guaifenesin [Guaifenesin AC] 10-100 mg/5 mL liquid 5 ml PO Q4H PRN (Reason: cough) Qty: 118 RF: 0 benzonatate [Tessalon Perles] 100 mg capsule 100 mg PO TID PRN (Reason: cough) Qty: 30 RF: 0 Continued Vicks NyQuil Cold/Flu Liquicap 6.25-15-325 mg Capsule 2 cap PO UD PRN (Reason: cold/flu symptoms) RF: 0 Discharge Orders: Discharge Order (Routine); Ordered 09/27/20 Ordered By: Mau Lewis Admission Data Admit Date/Time: 09/26/20 22:13 Attending Provider: Mau Lewis Admit Provider: Johann Smith Primary Care Provider: Meng Waters Other Providers: Mau Lewis Other Interventions: Discharge Summary Assessment (RN) Last Done: 09/27/20 13:17 Coding Level of Care Code D/C Day Management >30 mins Diagnoses Pneumonia due to COVID-19 virus U07.1; J12.89 Elevated d-dimer R79.89 History of melena Z87.19
[2020-09-28] MEDS ORDERED: REMDESIVIR 100 MG in SODIUM CHLORIDE 0.9% 230 ML IV SCH
--- NOTE | 2020-09-28 06:31 | Electrocardiogram Report ---
Test Reason : Blood Pressure : / mmHG Vent. Rate : 095 BPM Atrial Rate : 095 BPM P-R Int : 152 ms QRS Dur : 078 ms QT Int : 334 ms P-R-T Axes : 048 005 050 degrees QTc Int : 419 ms Poor data quality, interpretation may be adversely affected Normal sinus rhythm Normal ECG When compared with ECG of 22-JUN-2018 13:37, No significant change was found Confirmed by Jose Luis Robert ([id number]) on 09/28/2020 6:30:56 AM Referred By: REFERRED SELF Confirmed By:Jose Luis Robert
== END 2020-09-27 13:56 | disposition home or self-care (01) ==
LOC: ED 18:00 → INTOOBSV 22:13 → 2S 22:13 → SUATTDRO 22:13 → 2S 23:00